=== PATIENT | female | born 1975 | race Asian ===

== ENCOUNTER 2021-08-25 12:37 | Inpatient (IN) | payer OTHER ==
[~2021-08-25] VITALS: Ht 157.5 cm; Wt 48.8 kg
[2021-08-25 12:40] VITALS: BP_SYST 106
--- NOTE | 2021-08-25 12:45 | NUR ---
Placed in room 05 . Placed on rn cardiac, blood pressure machine and pulse oximeter. To gown for exam. Side rails up.
[2021-08-25] MEDS ORDERED: MAGNESIUM SULFATE/D5W 100 ML IV ONE (13:30)
[2021-08-25 13:43] LABS: BASOPHILS % (AUTO) 0.3 % (0.0-2.0); EOSINOPHILS # (AUTO) 0.2 K/uL (0.0-0.4); HEMATOCRIT 36.5 % (36-48); HEMOGLOBIN 12.3 g/dL (12.0-16.0); LYMPHOCYTES % (AUTO) 13.7 % (20.5-51.5); MEAN CORPUSCULAR HEMOGLOBIN 31 pg (27-31); MEAN CORPUSCULAR HGB CONC 34 % (32-36); MEAN CORPUSCULAR VOLUME 92 fL (79.0-98.0); MONOCYTES # (AUTO) 0.7 K/uL (0.0-1.0); MONOCYTES % (AUTO) 9.2 % (1.7-9.3); NEUTROPHILS # (AUTO) 5.7 K/uL (1.8-7.7); NEUTROPHILS % (AUTO) 74.8 % (40.0-70.0); PLATELET COUNT (AUTO) 191 K/uL (130-430); RED BLOOD CELL COUNT(AUTO) 3.95 MIL/uL (4.2-6.2); RED CELL DISTRIBUTION WIDTH 14.2 % (9.0-15.0); WHITE BLOOD COUNT (AUTO) 7.7 K/uL (4.8-10.8)
[2021-08-25 13:51] LABS: PROTHROMBIN TIME 10.1 SECS (9.5-12.5)
[2021-08-25 14:26] LABS: CALCIUM 8.1 mg/dL (8.4-11.0); CHLORIDE 108 mmol/L (98-107); GLUCOSE 130 mg/dL (70-99); POTASSIUM 4.3 mmol/L (3.5-5.1); SODIUM SERUM 139 mmol/L (136-145); UREA NITROGEN, BLOOD 15 mg/dL (8-21)
[2021-08-25 14:27] LABS: ALANINE AMINOTRANSFERASE 24 U/L (12-78); ASPARTATE AMINOTRANSFERASE 23 U/L (10-37); TOTAL BILIRUBIN 0.3 mg/dL (0.0-1.0)
[2021-08-25 14:38] LABS: ANION GAP 7 (5-15); CREATININE 0.56 mg/dL (0.55-1.30); GFR AFRICAN AMERICAN 149 mL/min (>90)
[2021-08-25] MEDS ORDERED: ONDANSETRON 4 MG ODT TAB PO PRN (16:00)
[2021-08-25 18:29] LABS: BILIRUBIN,URINE NEGATIVE (NEGATIVE); BLOOD, URINE NEGATIVE (NEGATIVE); CLARITY/URINE CLEAR (CLEAR); COLOR,URINE YELLOW (YELLOW); GLUCOSE,URINE NEGATIVE (NEGATIVE); KETONES,URINE NEGATIVE (NEGATIVE); LEUKOCYTE ESTERASE ,URINE NEGATIVE (NEGATIVE); NITRITE, URINE NEGATIVE (NEGATIVE); PROTEIN URINE NEGATIVE (NEGATIVE); UROBILINOGEN,URINE 0.2 (0.2-1.0)
--- NOTE | 2021-08-25 19:45 | NUR ---
PT ENDORSED BY MEERA BELLE, PT IN BED LOCKED IN LOW POSITION IN STABLE CONDITION, AWAITING FOR BED ON FLOOR. VSS, JOANNE. WILL CONTINUE TO MONITOR.
--- NOTE | 2021-08-25 20:25 | NUR ---
ADMISSION NOTE Received patient from ER via gurney. Patient admitted with diagnosis of chest pain. Patient is awake, alert, oriented X 4. Patient oriented to hospital room, call light, toileting, pain management and safety-teach back done. Patient informed that their room number is 126B. Personal belongings checked and Belongings List documented. Call light within reach. Addendum: 08/25/21 at 2242 by Janet Camacho RN WRONG TIME. 2224, NOT 2024
--- NOTE | 2021-08-25 20:49 | NUR ---
Admit bed requested Patient will be admitted to care of . Admitted to telemetry unit. Diagnosis chest pain Inpatient (Yes or No) yes Observation (Yes or No) Orientation concerns or request close to nursing station (Yes or No) no Covid Status positive On vent or bipap no Isolation requirements covid + Needs a sitter no From Home (Yes or if No enter name of facility) home Requires Dialysis (Yes or No) no Med Rec Completed (Yes of No) yes
--- NOTE | 2021-08-25 22:01 | NUR ---
CONSULTATION PAGED/CALLED Reason for Consultation: CHEST PAIN Person Who was Notified: SHERRON Consulting Physician: Home Care Coordinator Specialty: COUNTY JUDGE Ordering Physician: RAUL HUMPHREY
--- NOTE | 2021-08-25 22:15 | NUR ---
BEDSIDE REPORT GIVEN TO CHILANGO BELLE ON TELE FLOOR
[2021-08-25 22:38] VITALS: BP_SYST 116
--- NOTE | 2021-08-26 02:44 | NUR ---
Rounds Pt sleeping. No s/s of acute distress. Fall and safety checks in place
--- NOTE | 2021-08-26 07:15 | NUR ---
RECEIVED REPORT FROM ENDORSING SILK WORKER RN FOR CONTINUITY OF CARE, PATIENT LYING ON BED, NO SIGNS OF ACUTE DISTRESS NOTED AT THIS TIME,CHECKED VITAL SIGNS BLOOD PRESSURE 90/70, HEART RATE 63, OXYGEN SATURATION 99 AND TEMPERATURE 97.2, WILL CONTINUE TO MONITOR.
[2021-08-26] MEDS: ACETAMINOPHEN 500 MG TABLET PO PRN ×2 (10:53→21:27)
[2021-08-26 11:02] LABS: C-REACTIVE PROTEIN QUANT < 0.2 mg/dL (0-0.5)
[2021-08-26 11:23] VITALS: BP_SYST 93
[2021-08-26 15:34] VITALS: BP_SYST 92
--- NOTE | 2021-08-26 15:46 | NUR ---
CM: Updated via phone and faxed clinicals to [facility] fx# [phone]
[2021-08-26 16:00] VITALS: BP_SYST 105
[2021-08-26 22:04] VITALS: BP_SYST 136
[2021-08-26 22:05] VITALS: BP_SYST 136
[2021-08-26] MEDS ORDERED: HYDROcodone/ACETAMIN 5-325 MG TAB (NORCO/ VICODIN) PO PRN (22:30)
[2021-08-26] MEDS ORDERED: ONDANSETRON HCL 4 MG/2 ML VIAL IVP PRN (22:30)
[2021-08-27] VITALS: BP_SYST 129
--- NOTE | 2021-08-27 03:58 | NUR ---
RECEIVED REPORT FROM AM SHIFT RN PATIENT LYING ON BED, NO SIGNS OF ACUTE DISTRESS NOTED AT THIS TIME,CHECKED VITAL SIGNS BLOOD PRESSURE 110/70, HEART RATE 63, OXYGEN SATURATION 99 AND TEMPERATURE 97.6, PT ON DROPLET PRECAUTION. MD GAVE ORDER FOR NORCO 5/325 FOR MODERATE PAIN, PT HAS 6/10 HEADACHE PAIN. MD ALSO ORDERED A PCR FOR THE PT. WILL CONTINUE TO MONITOR
--- NOTE | 2021-08-27 05:32 | NUR ---
CONSULTATION PAGED/CALLED Reason for Consultation:COVID POSITIVE Person Who was Notified: HAILEE Consulting Physician: Quang LEDEZMA General Practitioner Specialty: Ordering Physician: MILAGRO
[2021-08-27] MEDS: ACETAMINOPHEN 500 MG TABLET PO PRN (06:11)
--- NOTE | 2021-08-27 07:15 | NUR ---
received report from endorsing etiquette teacher RN for continuity of care, patient sitting on a chair no signs of acute distress noted at this time, checked patient vital signs blood pressure 97/42, heart rate 55, oxygen saturation 97 and temperature 96.2. will continue to monitor/
[2021-08-27 08:00] VITALS: BP_SYST 97
[2021-08-27] MEDS: COLCHICINE 0.6 MG TABLET PO SCH ×2 (09:29→20:36)
[2021-08-27 12:00] VITALS: BP_SYST 105
[2021-08-27 16:00] VITALS: BP_SYST 97
[2021-08-27 20:00] VITALS: BP_SYST 101
--- NOTE | 2021-08-27 22:56 | NUR ---
Patient in bed. No acute distress noted. No complaint of pain or discomfort. Will continue to monitor.
[2021-08-28 08:00] VITALS: BP_SYST 101
[2021-08-28] MEDS: COLCHICINE 0.6 MG TABLET PO SCH (08:51)
[2021-08-28 12:00] VITALS: BP_SYST 100
[2021-08-28 16:00] VITALS: BP_SYST 99
[2021-08-28 20:02] VITALS: BP_SYST 100
--- NOTE | 2021-08-28 20:51 | NUR ---
Patient discharged with all belongings and discharge instructions. No acute distress noted. Will continue to monitor. Patient escorted to her car by DOOR CLOSER MECHANIC staff.
== END 2021-08-28 20:51 | disposition home or self-care (01) | DRG 178 ==
LOC: SED 12:37 → STU 15:59
PROVIDERS: ADMIT Family Medicine; ATTEND Family Medicine
DX: U07.1 COVID-19 (principal); E44.1 Mild protein-calorie malnutrition; Z68.1 Body mass index [BMI] 19.9 or less, adult; R07.89 Other chest pain; I49.3 Ventricular premature depolarization; E83.51 Hypocalcemia; I34.1 Nonrheumatic mitral (valve) prolapse
CPT/HCPCS: 36415; 71045; 80053; 81003; 83735; 83880; 84484; 85025; 85610-TC; 85651-TC; 85730-TC; 86140; 93005; 93306; 96374; 99285; G0378; Q0162; U0003